=== PATIENT | female | born 1965 | race Caucasian/White ===

== ENCOUNTER → 2016-08-03 | Outpatient (CLI) | payer OTHER ==
[~2016-08-03] MED LIST: BACTRIM DS TABL1 TAB PO; KEFLEX PO; NO MEDICATIONS; NORCO1 TAB 10/3 PO; ULTRAM PO; ZOFRAN ODT4 MG PO
--- NOTE | ~2016-08-03 | MY29 ---
[facility] A Service of [facility] RADIOLOGY TEXT RESULTS PATIENT: JOSÉ MIGUEL SOL LOCATION: [facility] : 65 UNIT #: [id number] AGE: [address]: Josh Carpenter MD SEX: F ORDER DR: [id number] [facility] [address] [place], [place] [address] [id number] O MR#: [id number] Acc #: [id number] NAME: JOSÉ MIGUEL SOL : 1965 SEX: F STUDY DATE/TIME: 08/03/2016 14:36 UNIT: [facility] ROOM: STUDY DESCRIPTION: MY DERIK SCREENING W/ CAD BILAT Attending Physician: Josh Carpenter M.D. Referring Physician: Josh Carpenter M.D. Ordering Physician: Josh Carpenter M.D. Primary Care Physician: Gasper Guerrero M.D. MEDICAL IMAGING REPORT This report is preliminary unless electronic signature is present EXAM Bilateral digital screening mammogram with CAD. INDICATION Breast cancer screening. 50-year-old asymptomatic female reports an unspecified family history of breast cancer. COMPARISON None - baseline exam. FINDINGS The breasts are almost entirely fatty. No suspicious findings are present. IMPRESSION No mammographic evidence of malignancy. Annual screening mammography and clinical breast exam are recommended. A result letter will be sent to the patient. Patients over the age of 40 are entered into a reminder system with target due date for the next mammogram. BIRADS: 1 Negative Dictated by... Maco Goel M.D. THIS IS AN ELECTRONICALLY VERIFIED REPORT Maco Goel M.D. at 08/07/2016 7:44 AM ALEXIS/garett TD: 08/03/2016 17:29 [facility] A Service of [facility] RADIOLOGY TEXT RESULTS PATIENT: JOSÉ MIGUEL SOL LOCATION: [facility] : 65 UNIT #: [id number] AGE: [address]: Josh Carpenter MD SEX: F ORDER DR: JOB #: [id number] MEDICAL IMAGING REPORT Page 1 of 1 COPY
== END | disposition home or self-care (01) ==
LOC: CWCC 13:45
DX: Z12.31 Encounter for screening mammogram for malignant neoplasm of breast (principal); Z80.3 Family history of malignant neoplasm of breast
CPT/HCPCS: G0202